=== PATIENT | male | born 1950 | race Caucasian/White ===

== ENCOUNTER 2021-10-18 12:40 | Emergency (ER) | payer OTHER ==
[~2021-10-18] VITALS: Ht 167.6 cm; Wt 71.2 kg
[2021-10-18 14:13] VITALS: BP 146/90
== END 2021-10-18 18:13 | disposition home or self-care (01) ==
LOC: ER 12:40
DX: S39.012A Strain of muscle, fascia and tendon of lower back, initial encounter (principal); S80.01XA Contusion of right knee, initial encounter; S50.11XA Contusion of right forearm, initial encounter; I96 Gangrene, not elsewhere classified; I10 Essential (primary) hypertension; Z88.0 Allergy status to penicillin; Z88.7 Allergy status to serum and vaccine; V43.52XA Car driver injured in collision with other type car in traffic accident, initial encounter; Y93.89 Activity, other specified; Y92.410 Unspecified street and highway as the place of occurrence of the external cause; Y99.8 Other external cause status
CPT/HCPCS: 72100; 73110; 73562

== ENCOUNTER 2022-09-18 07:00 | Day surgery (SDC) | payer OTHER ==
[~2022-09-18] VITALS: Ht 167.6 cm; Wt 71.2 kg
[~2022-09-18 07:00] MED LIST: ASPI-543 PO; CLOP75TA70 PO; HOME1SUB13 SL; HYDR-4072 PO; LISI-285 PO; METO-289 PO; MORI500C PO; POTA-180 PO; ROSU1TAB14 PO; SPECCAP4 OR; ZINC50TA7 PO
[2022-09-18] MEDS ORDERED: MIDAZOLAM HCL 2MG/2ML 2ml VIAL (1mg/ml) IV ONE (08:00)
[2022-09-18] MEDS ORDERED: fentaNYL CITRATE 100 MCG/2 ML VL IV ONE (08:00)
[2022-09-18] MEDS ORDERED: LIDOCAINE VISCOUS 2% 15ML UD PO ONE (08:00)
[2022-09-18 08:31] VITALS: BP 120/65
[2022-09-18 08:46] VITALS: BP 95/45
[2022-09-18 09:01] VITALS: BP 94/41
[2022-09-18 09:16] VITALS: BP 107/41
== END 2022-09-18 09:21 | disposition home or self-care (01) ==
LOC: CATH 07:00
PROVIDERS: ATTEND Internal Medicine
DX: I08.3 Combined rheumatic disorders of mitral, aortic and tricuspid valves (principal)
CPT/HCPCS: 93312; J2250; J3010; J7040; 99152

== ENCOUNTER 2025-01-24 11:31 | Inpatient (IN) | payer OTHER ==
[~2025-01-24] VITALS: Ht 167.6 cm; Wt 71.0 kg
[~2025-01-24 11:31] MED LIST changes: -ROSU1TAB14 PO; +ROSU20TA56 PO
--- NOTE | 2025-01-24 11:39 | ECG ---
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
--- NOTE | 2025-01-24 11:41 | ED.PDOC ---
HPI Comments 74-year-old male presents with a chief complaint of chest pain x 3 days. Patient mentions that his pain is localized to his sternal region, nonradiating, nonexertional, describes as intermittent lasting 10 seconds each time. Patient denies any other symptoms at this time. Patient is a poor historian. PMHx: HTN, HLD, CAD PSHx: PTCA HPI: Poor Historian. REVIEW OF SYSTEMS: CONSTITUTIONAL: Denies acute: fever, diaphoresis, chills, generalized weakness. HEAD: Denies acute: headache, photophobia Eyes: Denies acute: Double vision, vision loss, eye pain, eye discharge. EARS: Denies acute: tinnitus, hearing loss, ear discharge, ear pain, THROAT: Denies acute: sore throat, swelling, difficulty swallowing , pain with swallowing, change in voice. NECK: Denies acute: neck pain, neck swelling, stiff neck. HEART: Denies acute : palpitations, LUNGS: Denies acute: SOB, wheezing, cough, hemoptysis ABDOMEN: Denies acute: abdominal pain, Nausea, Vomiting, diarrhea, melena , hematemesis, hematochezia SKIN: Denies acute: rash, redness, lesions, itchiness. EXTREMITIES: Denies acute: calf pain, numbness, tingling, weakness, denies pain in extremity. Denies acute: Low back pain. Neuro: Denies acute: focal neurological deficit, motor or sensory focal neurological deficit, tremors, seizure like activity, confusion, dizziness, change in mental status, loss of bowel or bladder function, cauda equina like symptoms. : Denies acute: dysuria, hematuria, flank pain, increase in urinary frequency. PSYCH: Denies acute: hallucination, suicidal ideation, homicidal ideation. PHYSICAL EXAM: General: ----mild----acute distress, awake and alert. Head: normocephalic, atraumatic. Neck: supple, trachea is midline, no swelling. Throat: Normal phonation. Eyes:, no erythema, no purulent discharge, no proptosis, no icterus. Heart: regular rate, regular rhythm, no significant murmur appreciated. Lungs: no apparent respiratory distress, Able to speak in full sentences. No wheezing, no rhonchi, no crackles. No stridors Clear to auscultation bilaterally. Abdomen: non tender to palpation, non distended, soft, no guarding, no rebound, + bowel sounds. Neuro: Awake, Alert, oriented to name, self, situation, follows commands GCS=15. Speech is normal. Skin: no petechia, no purpura, no cyanosis, non-pale, not jaundice. Lower extremities: --no - Pitting edema no deformity, no focal swelling, no calf TTP. Makes eye contact. moves all four extremities. Face: no apparent facial droop. Ambulating in the ED independently. ED COURSE: DISCLAIMER: This medical document was created using an electronic medical record system with voice recognition software and computerized dictation system. Although this document has been carefully reviewed, there might still be some phonetic and typographical errors. Occasional wrong-word or "sound-alike" substitutions may have occurred due to the inherent limitations of voice recognition software. These areas are purely typographical due to imperfections of the software programs and do not reflect any compromise in the patient's medical care. Please read the chart carefully and recognize, using context, where these substitutions have occurred. Chief Complaint: Chest Pain Time Seen by MD: 11:34 Primary Care Provider: MAURA Reviewed Notes: Medications, Allergies Allergies: Coded Allergies: Penicillins (Verified Allergy, Severe, 10/18/21) Tetanus Toxoids (Verified Allergy, Severe, 10/18/21) Magnesium (Verified Allergy, Intermediate, 09/15/22) Home Meds Reported Medications Specialty Vitamins Products (Collagen Ultra) Ultra Cap, 1 OR DAILY for supplement, CAP 09/15/22 Moringa Oleifera (Moringa) 500 Mg Cap, 1000 MG PO DAILY for supplement, CAP 09/15/22 Homeopathic Products (Liver Support) 1 Sub Sub, 1 SUB SL DAILY for supplement, INJ 09/15/22 Zinc Gluconate (Zinc) 50 Mg Tab, 50 MG PO DAILY for supplement, TAB 09/15/22 Hydrocodone-Acetaminophen (Hydrocodone/Acetaminophen 10-325 mg) 1 Tab Tab, 1 TAB PO Q6HPRN for pain management, TAB 09/15/22 Aspirin (Aspir-Low) 81 Mg Tab, 81 MG PO DAILY for heart 09/15/22 Lisinopril & Hydrochlorothiazi (Lisinopril/Hydrochlorothi) 1 Tab Tab, 1 TAB PO DAILY for htn 09/15/22 Rosuvastatin Calcium (Rosuvastatin Calcium) 20 Mg Tab, 20 MG PO DAILY for cholesterol, TAB 09/15/22 Clopidogrel Bisulfate (CLOPIDOGREL) 75 Mg Tab, 75 MG PO DAILY for blood thinner 09/15/22 Metoprolol Succinate (Metoprolol Succinate Er) 50 Mg Tab, 50 MG PO DAILY for htn/heart 09/15/22 Potassium Chloride (Potassium Chloride ER) 20 Meq Tab, 20 MEQ PO DAILY for supplement, TAB 09/15/22 Information Source: Patient Mode of Arrival: Ambulatory Severity: Moderate Past Medical History PAST MEDICAL HISTORY: High Lipids, HTN Surgical History: PTCA Family History Family History: Unknown Social History Smoker: Non-Smoker Alcohol: Denies ETOH Use Drugs: Denies Drug Use Lives In: Home Was a procedure done? Was a procedure done?: No CP Differential Dx Differential Diagnosis: N/A Differential Diagnosis: Other (Ddx include but not limitied to gastritis, musculoskeletal pain, radiculopathy, atypical chest pain, dissection, aneurysm, ACS, unstable angina, hiatal hernia, GERD, anxiety, costochondritis, PE, pneumothroax, neoplasm, cardiac ischemia, drug abuse, anemia.) X-Ray, Labs, Meds, VS Vital Signs Date Time Temp Pulse Resp B/P (MAP) Pulse Ox O2 Delivery O2 Flow Rate FiO2 01/24/25 13:13 131/67 01/24/25 13:11 63 16 97 Room Air* 0 21 01/24/25 13:09 98.0 62 17 131/67 (88) 96 98.0 01/24/25 12:31 66 01/24/25 11:37 73 01/24/25 11:32 97.4 71 18 162/76 96 97.4 Lab Test 01/24/25 12:57 01/24/25 12:35 01/24/25 11:42 Range/Units Troponin I High Sensitivity 5 6 </=54 ng/L Urine Color Light-yellow Yellow Urine Clarity Clear Clear Urine pH 6.5 5.0-9.0 Urine Specific [place] 1.007 1.001-1.035 Urine Protein Negative Negative Urine Ketones Negative Negative Urine Blood Negative Negative /uL Urine Nitrite Negative Negative Urine Bilirubin Negative Negative Urine Urobilinogen Normal Negative mg/dL Urine Leukocyte Esterase Negative Negative /uL Urine RBC 1 0 - 3 /hpf Urine Microscopic WBC < 1 0-3 /HPF Urine Squamous Epithelial Cells None seen <5 /hpf Urine Bacteria None seen None Seen /hpf Urine Glucose Normal Normal mg/dL White Blood Count 7.1 4.4-10.8 10^3/uL Red Blood Count 4.71 4.5-5.90 10^6/uL Hemoglobin 15.9 13.5-17.5 g/dL Hematocrit 45.9 41.0-53.0 % Mean Corpuscular Volume 97.5 80.0-100.0 fL Mean Corpuscular Hemoglobin 33.8 H 28.0-32.0 pg Mean Corpuscular Hemoglobin Concent 34.6 32.0-36.0 g/dL Red Cell Distribution Width 13.9 11.8-14.3 % Platelet Count 210 140-450 10^3/uL Mean Platelet Volume 8.3 6.9-10.8 fL Neutrophils (%) (Auto) 61.6 37.0-80.0 % Lymphocytes (%) (Auto) 24.7 10.0-50.0 % Monocytes (%) (Auto) 8.1 0.0-12.0 % Eosinophils (%) (Auto) 5.2 0.0-7.0 % Basophils (%) (Auto) 0.4 0.0-2.0 % Neutrophils # (Auto) 4.4 1.6-8.6 10 ^3/uL Lymphocytes # (Auto) 1.8 0.4-5.4 10 ^3/uL Monocytes # (Auto) 0.6 0-1.3 10 ^3/uL Eosinophils # (Auto) 0.4 0-0.8 10 ^3/uL Basophils # (Auto) 0 0-0.2 10 ^3/uL Nucleated Red Blood Cells 0.1 % Sodium Level 141 136-145 mmol/L Potassium Level 3.7 3.5-5.1 mmol/L Chloride Level 103 98-107 mmol/L Carbon Dioxide Level 29 20-31 mmol/L Anion Gap 9 5-15 Blood Urea Nitrogen 7 L 9-23 mg/dL Creatinine 0.80 0.700-1.30 mg/dL Glomerular Filtration Rate Calc 92 >90 mL/min BUN/Creatinine Ratio 8.8 L 10.0-20.0 Serum Glucose 111 H 74-106 mg/dL Calcium Level 10.7 H 8.7-10.4 mg/dL Total Bilirubin 0.7 0.2-1.0 mg/dL Aspartate Amino Transferase (AST) 26 13-40 U/L Alanine Aminotransferase (ALT) 25 7-40 U/L Alkaline Phosphatase 91 46-116 U/L B-Type Natriuretic Peptide 188.77 0-100 pg/mL Total Protein 7.1 5.7-8.2 g/dL Albumin 4.5 3.2-4.8 g/dL Current Medications Medications (Trade) Dose Ordered Sig/Isis Route Start Time Stop Time Status Last Admin Aspirin 325 mg ONCE ONCE PO 01/24/25 11:45 01/24/25 11:46 DC 01/24/25 13:13 Nitroglycerin (Ntrostat Sublingual) 0.4 mg ONCE ONCE SL 01/24/25 11:45 01/24/25 11:46 DC 01/24/25 13:13 PATIENT: QUINCY GARCIACT: [id number]: [id number] : 1950 LOC: ER ROOM / BED: / AGE / SEX: 74 / M ADM STATUS: REG ER SERVICE 1138 ORDERING PHYSICIAN: CALLUM FUNG DO PROCEDURE(s): CXRP - CHEST PORTABLE REASON: cp ORDER NUMBER(s): [id number], ACCESSION NUMBER(s): [id number] CLINICAL HISTORY: cp TECHNIQUE: Single view of the chest was obtained. COMPARISON: TRANSESOPH ECHOCARDIOGRAM on DOS: 09/18/22 FINDINGS: The heart size and pulmonary vasculature are normal. The lungs are clear. IMPRESSION: NO ACUTE CARDIOPULMONARY PROCESS. ATED BY: WILI RUTH MD DICTATED DATE/TIME: 01/24/251205 SIGNED BY: WILI RUTH MD SIGNED DATE/TIME: 01/24/251205 Time of 1ST Reevaluation: 12:04 Reevaluation 1ST: Unchanged Patient Education/Counseling: Diagnosis, Treatment Family Education/Counseling: Diagnosis, Treatment Comments MDM: patient presented with the above HPI.--chest pain----workup was initiated. patient was found with the above mentioned diagnosis. the following medications were ordered: please refer to order lists of meds and tests obtained by myself Dr. Fung. Patient ED course and VS have been stabilized. Patient has been reassessed in the ED and remained in a stable condition. Pertinent incidental findings were discussed with the patient and/or family. Patient/family voices understanding and is agreeable with plan. Patient has been observed in the ED adequate length of time to insure imp rovement/stability. Escalation of care considered: Consideration of escalation to observation or admission Patient was ADMITTED to the medicine team for further evaluation and treatment of their presentation. All the reports of any imaging studies that were ordered by myself were reviewed by myself. Departure 1 Departure Time of Disposition: 12:29 Impression: Primary Impression: Chest pain Additional Impression: Acute myocardial infarction Disposition: ADMITTED INPATIENT Admit to: Tele Condition: Guarded Discharged With: Self Critical Care Note Critical Care Time?: No Heart Score Heart Score: Heart Score Response (Comments) Value History Moderate Suspicious 1 EKG Normal 0 Age >65 2 Risk Factors >3 or Hx ASHD 2 Troponin Normal limit 0 Total 5 I personally scribed for CALLUM FUNG DO ([email or web address]) on 01/24/25 at 11:41. Electronically submitted by Kojo Mccauley ([email or web address]). I personally scribed for CALLUM FUNG DO ([email or web address]) on 01/24/25 at 13:01. Electronically submitted by Kojo Mccauley ([email or web address]). CALLUM FUNG DO Jan 24, 2025 11:41
--- NOTE | 2025-01-24 12:08 | DVH ---
CLINICAL HISTORY: cp TECHNIQUE: Single view of the chest was obtained. COMPARISON: TRANSESOPH ECHOCARDIOGRAM on DOS: 09/18/22 FINDINGS: The heart size and pulmonary vasculature are normal. The lungs are clear. IMPRESSION: NO ACUTE CARDIOPULMONARY PROCESS.
[2025-01-24 12:15] LABS: Alanine Aminotransferase 25 U/L (7-40); Albumin 4.5 g/dL (3.2-4.8); Alkaline Phosphatase 91 U/L (46-116); Anion Gap 9 (5-15); BUN/Creatinine Ratio 8.8 (10.0-20.0); Bilirubin, Total 0.7 mg/dL (0.2-1.0); Carbon Dioxide 29 mmol/L (20-31); Chloride 103 mmol/L (98-107); Potassium 3.7 mmol/L (3.5-5.1); Sodium 141 mmol/L (136-145); Total Protein 7.1 g/dL (5.7-8.2)
[2025-01-24 12:16] LABS: Hematocrit 45.9 % (41.0-53.0); Hemoglobin 15.9 g/dL (13.5-17.5); Mean Corpuscular Hemoglobin 33.8 pg (28.0-32.0); Mean Corpuscular Volume 97.5 fL (80.0-100.0); Nucleated Red Blood Cells % 0.1 %
[2025-01-24 12:17] LABS: Blood Urea Nitrogen 7 mg/dL (9-23); Calcium 10.7 mg/dL (8.7-10.4); Glucose 111 mg/dL (74-106)
[2025-01-24 13:04] LABS: Urine Protein, UAD Negative (Negative)
[2025-01-24 13:11] VITALS: PULSE 63; RESP 16; O2SAT 97
[2025-01-24] MEDS: NITROGLYCERIN 0.4 MG SL TAB SL ONE (13:13)
[2025-01-24] MEDS ORDERED: ONDANSETRON HCL 4 MG/2 ML VIAL IV PRN (14:15)
[2025-01-24] MEDS ORDERED: HYDROcodone-ACET 5/325MG TAB PO PRN (14:15)
[2025-01-24] MEDS ORDERED: MORPHINE SULFATE INJ 2 MG/ml SYRG IV PRN ×2 (14:15)
[2025-01-24] MEDS ORDERED: ACETAMINOPHEN 325 MG TAB PO PRN (14:15)
[2025-01-24] MEDS ORDERED: NITROGLYCERIN 0.4 MG SL TAB SL PRN (14:15)
--- NOTE | 2025-01-24 14:24 | DVHHP2 ---
History of Present Illness Reason for Visit: Intermittent chest pain on and off for last three days History of Present Illness 74-year-old male with a known history of coronary artery disease status post PCI with a one stent, hypertension, dyslipidemia who initially presented to the hospital with a intermittent chest pain on and off for last three days. Patient has stated that the pain is kind of pressure in the substernal area without any radiation associated with shortness of breaths. Patient's denies any previous episode of similar kind. Patient does have known history of GERD. Denies any fevers chills flu-like symptoms or any recent sick contacts. Cardiovascular: CAD, HTN, hyperipidemia GI: GERD Past Surgical History: Other (Left shoulder surgery. C-spine neck surgery.), Total knee replacement Family History: None Smoke: No ALCOHOL: none Drugs: None Review of Systems Review of Systems Twelve review of system are negative besides mentioned above. Allergies: Coded Allergies: Penicillins (Verified Allergy, Severe, 10/18/21) Tetanus Toxoids (Verified Allergy, Severe, 10/18/21) Magnesium (Verified Allergy, Intermediate, 09/15/22) Exam Vital Signs Vital Signs Date Time Temp Pulse Resp B/P (MAP) Pulse Ox O2 Delivery O2 Flow Rate FiO2 01/24/25 13:13 131/67 01/24/25 13:11 63 16 97 Room Air* 0 21 01/24/25 13:09 98.0 98.0 Exam HEENT pupils are reactive Neck is supple CV is S1-S2 regular rate and rhythm Respiratory diminished breath sounds bases GI positive bowel sounds Extremity no edema DIRECTOR OF BILLING no motor deficit Labs/Xrays Labs Test 01/24/25 12:57 01/24/25 12:35 01/24/25 11:42 Range/Units Troponin I High Sensitivity 5 </=54 ng/L Urine Color Light-yellow Yellow Urine Clarity Clear Clear Urine pH 6.5 5.0-9.0 Urine Specific [place] 1.007 1.001-1.035 Urine Protein Negative Negative Urine Ketones Negative Negative Urine Blood Negative Negative /uL Urine Nitrite Negative Negative Urine Bilirubin Negative Negative Urine Urobilinogen Normal Negative mg/dL Urine Leukocyte Esterase Negative Negative /uL Urine RBC 1 0 - 3 /hpf Urine Microscopic WBC < 1 0-3 /HPF Urine Squamous Epithelial Cells None seen <5 /hpf Urine Bacteria None seen None Seen /hpf Urine Glucose Normal Normal mg/dL White Blood Count 7.1 4.4-10.8 10^3/uL Red Blood Count 4.71 4.5-5.90 10^6/uL Hemoglobin 15.9 13.5-17.5 g/dL Hematocrit 45.9 41.0-53.0 % Mean Corpuscular Volume 97.5 80.0-100.0 fL Mean Corpuscular Hemoglobin 33.8 H 28.0-32.0 pg Mean Corpuscular Hemoglobin Concent 34.6 32.0-36.0 g/dL Red Cell Distribution Width 13.9 11.8-14.3 % Platelet Count 210 140-450 10^3/uL Mean Platelet Volume 8.3 6.9-10.8 fL Neutrophils (%) (Auto) 61.6 37.0-80.0 % Lymphocytes (%) (Auto) 24.7 10.0-50.0 % Monocytes (%) (Auto) 8.1 0.0-12.0 % Eosinophils (%) (Auto) 5.2 0.0-7.0 % Basophils (%) (Auto) 0.4 0.0-2.0 % Neutrophils # (Auto) 4.4 1.6-8.6 10 ^3/uL Lymphocytes # (Auto) 1.8 0.4-5.4 10 ^3/uL Monocytes # (Auto) 0.6 0-1.3 10 ^3/uL Eosinophils # (Auto) 0.4 0-0.8 10 ^3/uL Basophils # (Auto) 0 0-0.2 10 ^3/uL Nucleated Red Blood Cells 0.1 % Sodium Level 141 136-145 mmol/L Potassium Level 3.7 3.5-5.1 mmol/L Chloride Level 103 98-107 mmol/L Carbon Dioxide Level 29 20-31 mmol/L Anion Gap 9 5-15 Blood Urea Nitrogen 7 L 9-23 mg/dL Creatinine 0.80 0.700-1.30 mg/dL Glomerular Filtration Rate Calc 92 >90 mL/min BUN/Creatinine Ratio 8.8 L 10.0-20.0 Serum Glucose 111 H 74-106 mg/dL Calcium Level 10.7 H 8.7-10.4 mg/dL Total Bilirubin 0.7 0.2-1.0 mg/dL Aspartate Amino Transferase (AST) 26 13-40 U/L Alanine Aminotransferase (ALT) 25 7-40 U/L Alkaline Phosphatase 91 46-116 U/L B-Type Natriuretic Peptide 188.77 0-100 pg/mL Total Protein 7.1 5.7-8.2 g/dL Albumin 4.5 3.2-4.8 g/dL SEPSIS Sepsis Screen Date sepsis recognized/suspect: Jan 24, 2025 Time Sepsis recognized/suspect: 1134 Recent Procedure: No Respiratory Rate >20: No Heart Rate >90: No Temp<36 C (96.8 F) or >38.3 C: No SBP <90 or MAP <65 mmHG: No New Acute Mental Status Change: No Is the patient on CPAP, BIPAP,: No Physician Orders Troponin-I Hs (01/24/25 14:35) Electrocardigram (01/24/25 12:35) Electrocardigram (01/24/25 14:35) Bottom Precipitator Operator (01/24/25 ) Chest Portable (01/24/25 11:38) Admit (01/24/25 14:15) Code Status (01/24/25 14:15) 2 Gm Sodium Diet (01/24/25 Dinner) Hydrocodone-Acet 5/325mg Tab ([place] 5/32 (01/24/25 14:15) Ondansetron Hcl (Zofran) (01/24/25 14:15) Echo 2d Mode Cardiac Dop (01/24/25 14:15) Condition: Fair (01/24/25 14:15) Acetaminophen Tablet (Tylenol Tablet) (01/24/25 14:15) Morphine Sulfate Injection (01/24/25 14:15) Nitroglycerin Sublingual (Ntrostat Subli (01/24/25 14:15) Morphine Sulfate Injection (01/24/25 14:15) Stat Ekg For Chest Pain (01/24/25 14:15) Notify Md Of Changes From Base (01/24/25 14:15) Cut In Station Operator For 24 Hours (01/24/25 14:15) Emergency Dysrhythmia Protocol (01/24/25 14:15) Rhythm Strips Once Every Shift (01/24/25 14:15) Oxygen By Nasal Cannula (01/24/25 14:15) * Cardiology Consult (01/24/25 14:15) Aspirin Enteric Coated Tablet (Ecotrin E (01/25/25 10:00) Clopidogrel Bisulfate (Plavix) (01/25/25 10:00) Metoprolol Xl Succinate (Toprol Xl) (01/25/25 10:00) (Nf) Lisinopril & Hydrochlorothiazi (Lis (01/25/25 10:00) (Nf) Rosuvastatin Calcium (01/25/25 10:00) Vital Signs Date Time Temp Pulse Resp B/P (MAP) Pulse Ox O2 Delivery O2 Flow Rate FiO2 01/24/25 13:13 131/67 01/24/25 13:11 63 16 97 Room Air* 0 21 01/24/25 13:09 98.0 62 17 131/67 (88) 96 98.0 01/24/25 12:31 66 01/24/25 11:37 73 01/24/25 11:32 97.4 71 18 162/76 96 97.4 Laboratory Tests Test 01/24/25 11:42 White Blood Count 7.1 10^3/uL (4.4-10.8) Medications Medications Dose Ordered Sig/Isis Route Start Time Stop Time Status Last Admin Dose Admin Aspirin 325 mg ONCE ONCE PO 01/24/25 11:45 01/24/25 11:46 DC 01/24/25 13:13 325 MG Nitroglycerin 0.4 mg ONCE ONCE SL 01/24/25 11:45 01/24/25 11:46 DC 01/24/25 13:13 0.4 MG Assessment/Plan Assessment/Plan 74-year-old male with a known history of CAD status post PCI, hypertension, dyslipidemia, GERD, who initially presented to the hospital with intermittent chest pain on and off for last three days found to have 1. Chest pain suspect unstable angina 2. Coronary artery disease status post PCI 3. Hypertension 4. Dyslipidemia 5. GERD -admitted to telemetry, 2D echo, cardiology consultation, resume home medications. Plan discussed with: Patient, Daughter My Orders Orders - MARC REY MD Procedure Category Date Status Time Admit ADMIT 01/24/25 Transmitted 14:15 Code Status CODE 01/24/25 Transmitted 14:15 2 Gm Sodium Diet DIET 01/24/25 Transmitted Dinner Hydrocodone-Acet PHA 01/24/25 Logged 5/325mg Tab ([place] 14:15 Ondansetron Hcl PHA 01/24/25 Logged (Zofran) 14:15 Echo 2d Mode Cardiac US 01/24/25 Logged DOP 14:15 Condition: Fair JASMIN 01/24/25 Transmitted 14:15 Acetaminophen Tablet PHA 01/24/25 Transmitted (Tylenol Tablet) 14:15 Morphine Sulfate PHA 01/24/25 Transmitted Injection 14:15 Nitroglycerin PHA 01/24/25 Transmitted Sublingual (Ntrostat 14:15 Morphine Sulfate PHA 01/24/25 Transmitted Injection 14:15 Stat Ekg For Chest JASMIN 01/24/25 Transmitted Pain 14:15 Notify Md Of Changes JASMIN 01/24/25 Transmitted From Base 14:15 Cut In Station Operator For JASMIN 01/24/25 Transmitted 24 Hours 14:15 Emergency Dysrhythmia JASMIN 01/24/25 Transmitted Protocol 14:15 Rhythm Strips Once JASMIN 01/24/25 Transmitted Every Shift 14:15 Oxygen By Nasal RT 01/24/25 Transmitted Cannula 14:15 * Cardiology Consult CONS 01/24/25 Transmitted 14:15 Aspirin Enteric PHA 01/25/25 Transmitted Coated Tablet 10:00 Clopidogrel Bisulfate PHA 01/25/25 Transmitted (Plavix) 10:00 Metoprolol Xl PHA 01/25/25 Transmitted Succinate (Toprol Xl) 10:00 (Nf) Lisinopril & PHA 01/25/25 Transmitted Hydrochlorothiazi (Lis 10:00 (Nf) Rosuvastatin PHA 01/25/25 Transmitted Calcium 10:00 Date of Service: Jan 24, 2025 Billing Provider: MARC RYE MD Common Visit Codes: NOT BILLABLE MARC REY MD Jan 24, 2025 14:24
[2025-01-24 17:20] VITALS: BP 112/58; PULSE 57; RESP 18; TEMP 97.2; O2SAT 95
--- NOTE | 2025-01-24 18:59 | ECG ---
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
[2025-01-24 20:00] VITALS: BP 97/44; PULSE 61; RESP 18; O2SAT 95
[2025-01-24] MEDS: ATORVASTATIN 20 MG TAB PO SCH (21:44)
[2025-01-24 23:00] VITALS: BP 133/53; PULSE 60; RESP 17; TEMP 98.4; O2SAT 99
[2025-01-25] VITALS (7 sets, daily range): BP systolic 108–148; BP diastolic 40–78; PULSE 54–61; RESP 17–20; TEMP 96.5–97.9; O2SAT 94–98
[2025-01-25] MEDS: ASPirin-EC 81 mg tab PO SCH (09:54)
[2025-01-25] MEDS: CLOPIDOGREL BISULFATE 75 MG TAB PO SCH (09:54)
[2025-01-25] MEDS: METOPROLOL SUCCINATE XL 50 MG TAB PO SCH (09:55)
[2025-01-25] MEDS: LISINOPRIL 20 MG TAB PO SCH (09:55)
[2025-01-25] MEDS: hydroCHLOROthiazide 25 MG TAB PO SCH (09:55)
--- NOTE | 2025-01-25 11:41 | DVHINCON2 ---
Date Seen: Jan 25, 2025 Referring Physician Nara Reason for Consultation Chest Pain History of Present Illness 74-year-old male with PMH for CAD s/p PCI with stent x1, HTN, HLD presents to the hospital with intermittent chest pain. Chest pain described as dull/burning, intermittent, retrosternal, radiating up to throat area, feels more like indigestion at times. No change with exertion. Troponins negative x3. CXR unremarkable. Past Medical History CAD, HTN, HLD, GERD Past Surgical History Coronary PCI Family History: FH: heart disease G8 MOTHER G8 FATHER G8 BROTHER Kidney stones G8 BROTHER Social History Denies alcohol, tobacco, or illicit drug use. Allergies: Coded Allergies: Penicillins (Verified Allergy, Severe, 10/18/21) Tetanus Toxoids (Verified Allergy, Severe, 10/18/21) Magnesium (Verified Allergy, Intermediate, 09/15/22) Home Meds Reported Medications Specialty Vitamins Products (Collagen Ultra) Ultra Cap, 1 OR DAILY for supplement, CAP 09/15/22 Moringa Oleifera (Moringa) 500 Mg Cap, 1000 MG PO DAILY for supplement, CAP 09/15/22 Homeopathic Products (Liver Support) 1 Sub Sub, 1 SUB SL DAILY for supplement, INJ 09/15/22 Zinc Gluconate (Zinc) 50 Mg Tab, 50 MG PO DAILY for supplement, TAB 09/15/22 Hydrocodone-Acetaminophen (Hydrocodone/Acetaminophen 10-325 mg) 1 Tab Tab, 1 TAB PO Q6HPRN for pain management, TAB 09/15/22 Aspirin (Aspir-Low) 81 Mg Tab, 81 MG PO DAILY for heart 09/15/22 Lisinopril & Hydrochlorothiazi (Lisinopril/Hydrochlorothi) 1 Tab Tab, 1 TAB PO DAILY for htn 09/15/22 Rosuvastatin Calcium (Rosuvastatin Calcium) 20 Mg Tab, 20 MG PO DAILY for cholesterol, TAB 09/15/22 Clopidogrel Bisulfate (CLOPIDOGREL) 75 Mg Tab, 75 MG PO DAILY for blood thinner 09/15/22 Metoprolol Succinate (Metoprolol Succinate Er) 50 Mg Tab, 50 MG PO DAILY for htn/heart 09/15/22 Potassium Chloride (Potassium Chloride ER) 20 Meq Tab, 20 MEQ PO DAILY for supplement, TAB 09/15/22 Current Medications Current Medications Medications (Trade) Dose Ordered Sig/Isis Route PRN Reason Start Time Stop Time Status Last Admin Acetaminophen/ Hydrocodone Bitart ([place] 5/325MG Tab) 1 tab Q4HP PRN PO MODERATE PAIN (4-6 PAIN SCALE) 01/24/25 14:15 Ondansetron HCl (Zofran) 4 mg Q4HP PRN IV NAUSEA / VOMITING 01/24/25 14:15 Acetaminophen (Tylenol Tablet) 650 mg Q6HP PRN PO PAIN SCALE 1-3 OR TEMP>100.4 01/24/25 14:15 Morphine Sulfate 2 mg Q4HPRN PRN IV SEVERE PAIN (7-10 PAIN SCALE) 01/24/25 14:15 Nitroglycerin (Ntrostat Sublingual) 0.4 mg Q5MINP PRN SL FOR CHEST PAIN 01/24/25 14:15 Morphine Sulfate 2 mg Q30M PRN IV FOR CHEST PAIN 01/24/25 14:15 Aspirin (Ecotrin Enteric Coated Tablet) 81 mg DAILY PO 01/25/25 10:00 01/25/25 09:54 Clopidogrel Bisulfate (Plavix) 75 mg DAILY PO 01/25/25 10:00 01/25/25 09:54 Metoprolol Succinate (Toprol Xl) 50 mg DAILY PO 01/25/25 10:00 01/25/25 09:55 Lisinopril (Zestril Tablet) 20 mg DAILY PO 01/25/25 10:00 01/25/25 09:55 Atorvastatin Calcium (Lipitor) 40 mg HS PO 01/24/25 22:00 01/24/25 21:44 Hydrochlorothiazide (hydroCHLOROthiazide TABLET) 25 mg DAILY PO 01/25/25 10:00 01/25/25 09:55 Review of Systems Constitutional: No: Fever, Chills, Sweats, Weakness, Malaise, Other Eyes: No: Pain, Vision change, Conjunctivae inflammation, Eyelid inflammation, Other, Redness ENT: No: Ear pain, Ear discharge, Nose pain, Nose discharge, Nose congestion, Mouth pain, Mouth swelling, Throat pain, Throat swelling, Other Respiratory: No: Cough, Dry, Shortness of breath, SOB with exertion, Wheezing, Hemoptysis, Pleuritic Pain, Sputum, Wheezing, Other Cardiovascular: ; No: Chest Pain Palpitations, Orthopnea, Paroxysmal Noc. Dyspnea, Edema, Lt Headedness, Other Gastrointestinal: No: Nausea, Vomiting, Abdominal Pain, Diarrhea, Constipation, Melena, Hematochezia, Other Genitourinary: No Dysuria, No Frequency, No Incontinence, No Hematuria, No Retention, No Other Musculoskeletal: neck pain; No: other, shoulder pain, arm pain, back pain, hand pain, leg pain, foot pain Skin: No: Rash, Lesions, Jaundice, Bruising, Other Neurological: Other (Dizziness, headache.); No: Weakness, Numbness, Incoordination, Change in speech, Confusion, Seizures Vital Signs Vital Signs Date Time Temp Pulse Resp B/P (MAP) Pulse Ox O2 Delivery O2 Flow Rate FiO2 01/25/25 09:55 148/58 01/25/25 09:55 61 01/25/25 09:00 96.5 18 95 96.5 01/24/25 20:00 Room Air* 0 21 Physical Exam General appearance: Patient is well-developed, well-nourished, in no acute distress. HEENT: Exam shows: Normocephalic, atraumatic, PERRLA, EOMI Neck: Supple, no bruits Chest: Equal chest excursion bilaterally. Breath sounds normal-no rales or wheezes. Heart: Rhythm: Regular rate; no murmur or gallop Abdomen: Exam shows: Soft, nontender, nondistended Musculoskeletal: No clubbing, no cyanosis, no lower extremity edema Dermatology: Skin warm, moist. Neurological: Exam shows: Alert and oriented x4, normal speech Available prior records, labs, EKG, rhythm strips reviewed and interpreted Labs/Diagnostic Data Labs Test 01/24/25 14:49 01/24/25 12:35 01/24/25 11:42 Range/Units Troponin I High Sensitivity 5 </=54 ng/L Urine Color Light-yellow Yellow Urine Clarity Clear Clear Urine pH 6.5 5.0-9.0 Urine Specific [place] 1.007 1.001-1.035 Urine Protein Negative Negative Urine Ketones Negative Negative Urine Blood Negative Negative /uL Urine Nitrite Negative Negative Urine Bilirubin Negative Negative Urine Urobilinogen Normal Negative mg/dL Urine Leukocyte Esterase Negative Negative /uL Urine RBC 1 0 - 3 /hpf Urine Microscopic WBC < 1 0-3 /HPF Urine Squamous Epithelial Cells None seen <5 /hpf Urine Bacteria None seen None Seen /hpf Urine Glucose Normal Normal mg/dL White Blood Count 7.1 4.4-10.8 10^3/uL Red Blood Count 4.71 4.5-5.90 10^6/uL Hemoglobin 15.9 13.5-17.5 g/dL Hematocrit 45.9 41.0-53.0 % Mean Corpuscular Volume 97.5 80.0-100.0 fL Mean Corpuscular Hemoglobin 33.8 H 28.0-32.0 pg Mean Corpuscular Hemoglobin Concent 34.6 32.0-36.0 g/dL Red Cell Distribution Width 13.9 11.8-14.3 % Platelet Count 210 140-450 10^3/uL Mean Platelet Volume 8.3 6.9-10.8 fL Neutrophils (%) (Auto) 61.6 37.0-80.0 % Lymphocytes (%) (Auto) 24.7 10.0-50.0 % Monocytes (%) (Auto) 8.1 0.0-12.0 % Eosinophils (%) (Auto) 5.2 0.0-7.0 % Basophils (%) (Auto) 0.4 0.0-2.0 % Neutrophils # (Auto) 4.4 1.6-8.6 10 ^3/uL Lymphocytes # (Auto) 1.8 0.4-5.4 10 ^3/uL Monocytes # (Auto) 0.6 0-1.3 10 ^3/uL Eosinophils # (Auto) 0.4 0-0.8 10 ^3/uL Basophils # (Auto) 0 0-0.2 10 ^3/uL Nucleated Red Blood Cells 0.1 % Sodium Level 141 136-145 mmol/L Potassium Level 3.7 3.5-5.1 mmol/L Chloride Level 103 98-107 mmol/L Carbon Dioxide Level 29 20-31 mmol/L Anion Gap 9 5-15 Blood Urea Nitrogen 7 L 9-23 mg/dL Creatinine 0.80 0.700-1.30 mg/dL Glomerular Filtration Rate Calc 92 >90 mL/min BUN/Creatinine Ratio 8.8 L 10.0-20.0 Serum Glucose 111 H 74-106 mg/dL Calcium Level 10.7 H 8.7-10.4 mg/dL Total Bilirubin 0.7 0.2-1.0 mg/dL Aspartate Amino Transferase (AST) 26 13-40 U/L Alanine Aminotransferase (ALT) 25 7-40 U/L Alkaline Phosphatase 91 46-116 U/L B-Type Natriuretic Peptide 188.77 0-100 pg/mL Total Protein 7.1 5.7-8.2 g/dL Albumin 4.5 3.2-4.8 g/dL Assessment * Chest Pain - atypical. EKG negative for acute ST abnormalities. Follow up echo. Continue aspirin and statin and Plavix. * HTN - continue on current regimen. Stable. * HLD - statin * CAD reported previous stent - continue aspirin and statin and Plavix. Case Discussed with Dr Smith. Chest pain atypical. Follow up echo, if no significant abnormalities noted on echo, no further cardiac work-up indicated at this time. Patient endorses had recent stress test at his [facility] Dr. Edwards within last 5-6 months that was unremarkable. Continue outpatient follow up with Dr. Edwards. Thank you for allowing us to participate in this patient's care. Will sign off. Critical care, time spent: 40 minutes This medical document was created using an electronic medical record system with voice recognition software and computerized dictation system. Although this document has been carefully reviewed, there might still be some phonetic and typographical errors. Occasional wrong-word or ``sound-alike substitutions may have occurred due to the inherent limitations of voice recognition software. These areas are purely typographical due to imperfections of the software programs and do not reflect any compromise in the patient's medical care. Please read the chart carefully and recognize, using context, where these substitutions have occurred. Thank you for allowing me to participate in the management of this patient. The treatment plan was discussed with and agreed upon by patient/family including requesting consultants and ordering of imaging/procedures. Plan discussed with: Patient NYHA Physical activity limitations: NA Date of Service: Jan 25, 2025 Billing Provider: YAZMIN FUENTES Cardiology Common Codes: [id number] INP/OBS CARE (High), [id number] CARE 30-74 MIN YAZMIN FUENTES Jan 25, 2025 11:41
[2025-01-25] MEDS: PANTOPRAZOLE 40 MG/10 ML VIAL INJ IV ONE (17:03)
[2025-01-25] MEDS ORDERED: OMEP20TA PO (17:36)
--- NOTE | 2025-01-25 17:39 | DVHDS2 ---
Discharge Summary Date of Admission Jan 24, 2025 at 14:15 Date of Discharge: Jan 25, 2025 Labs/Diagnostic Data: Laboratory Results Test 01/24/25 14:49 01/24/25 12:35 01/24/25 11:42 Troponin I High Sensitivity 5 ng/L (</=54) Urine Color Light-yellow (Yellow) Urine Clarity Clear (Clear) Urine pH 6.5 (5.0-9.0) Urine Specific [place] 1.007 (1.001-1.035) Urine Protein Negative (Negative) Urine Ketones Negative (Negative) Urine Blood Negative /uL (Negative) Urine Nitrite Negative (Negative) Urine Bilirubin Negative (Negative) Urine Urobilinogen Normal mg/dL (Negative) Urine Leukocyte Esterase Negative /uL (Negative) Urine RBC 1 /hpf (0 - 3) Urine Microscopic WBC < 1 /HPF (0-3) Urine Squamous Epithelial Cells None seen /hpf (<5) Urine Bacteria None seen /hpf (None Seen) Urine Glucose Normal mg/dL (Normal) White Blood Count 7.1 10^3/uL (4.4-10.8) Red Blood Count 4.71 10^6/uL (4.5-5.90) Hemoglobin 15.9 g/dL (13.5-17.5) Hematocrit 45.9 % (41.0-53.0) Mean Corpuscular Volume 97.5 fL (80.0-100.0) Mean Corpuscular Hemoglobin 33.8 pg (28.0-32.0) Mean Corpuscular Hemoglobin Concent 34.6 g/dL (32.0-36.0) Red Cell Distribution Width 13.9 % (11.8-14.3) Platelet Count 210 10^3/uL (140-450) Mean Platelet Volume 8.3 fL (6.9-10.8) Neutrophils (%) (Auto) 61.6 % (37.0-80.0) Lymphocytes (%) (Auto) 24.7 % (10.0-50.0) Monocytes (%) (Auto) 8.1 % (0.0-12.0) Eosinophils (%) (Auto) 5.2 % (0.0-7.0) Basophils (%) (Auto) 0.4 % (0.0-2.0) Neutrophils # (Auto) 4.4 10 ^3/uL (1.6-8.6) Lymphocytes # (Auto) 1.8 10 ^3/uL (0.4-5.4) Monocytes # (Auto) 0.6 10 ^3/uL (0-1.3) Eosinophils # (Auto) 0.4 10 ^3/uL (0-0.8) Basophils # (Auto) 0 10 ^3/uL (0-0.2) Nucleated Red Blood Cells 0.1 % Sodium Level 141 mmol/L (136-145) Potassium Level 3.7 mmol/L (3.5-5.1) Chloride Level 103 mmol/L (98-107) Carbon Dioxide Level 29 mmol/L (20-31) Anion Gap 9 (5-15) Blood Urea Nitrogen 7 mg/dL (9-23) Creatinine 0.80 mg/dL (0.700-1.30) Glomerular Filtration Rate Calc 92 mL/min (>90) BUN/Creatinine Ratio 8.8 (10.0-20.0) Serum Glucose 111 mg/dL (74-106) Calcium Level 10.7 mg/dL (8.7-10.4) Total Bilirubin 0.7 mg/dL (0.2-1.0) Aspartate Amino Transferase (AST) 26 U/L (13-40) Alanine Aminotransferase (ALT) 25 U/L (7-40) Alkaline Phosphatase 91 U/L (46-116) B-Type Natriuretic Peptide 188.77 pg/mL (0-100) Total Protein 7.1 g/dL (5.7-8.2) Albumin 4.5 g/dL (3.2-4.8) Other Laboratory Tests 01/24/25 11:42 Brief Hx & Hospital Course: 74-year-old male with a known history of CAD status post PCI, hypertension, dyslipidemia, GERD, who initially presented to the hospital with intermittent chest pain on and off for last three days found to have chest pain ruled out acute MA by negative cardiac markers and negative EKG. Patient was seen by Cardiology and currently stable to be discharged. Patient does have known history of GERD, omeprazole will be prescribed. Patient is being discharged under stable condition with a close follow up as an outpatient with the PCP and Cardiology. Condition at Discharge: Stable Final Diagnosis/Problems List 74-year-old male with a known history of CAD status post PCI, hypertension, dyslipidemia, GERD, who initially presented to the hospital with intermittent chest pain on and off for last three days found to have 1. Chest pain ruled out acute MA 2. Coronary artery disease status post PCI 3. Hypertension 4. Dyslipidemia 5. GERD Discharge Disposition: Home SNF Discharge Will this Physician continue t: No Discharge Instruct/Medications Diet: Cardiac 2g Na,low cholest Activity: No Restrictions, As Tolerated Follow Up/Referral: Follow up with the PCP in 1-2 weeks Follow up with the Cardiology for outpatient stress test if needed. Medications: Resume home medications, new prescription as prescribed. New Medications: Omeprazole (Gnp Omeprazole) 20 Mg Tab 1 TAB PO DAILY, #60 TAB 1 Refill Continued Medications: Aspirin (Aspir-Low) 81 Mg Tab 81 MG PO DAILY for heart Clopidogrel Bisulfate (Clopidogrel) 75 Mg Tab 75 MG PO DAILY for blood thinner Homeopathic Products (Liver Support) 1 Sub Sub 1 SUB SL DAILY for supplement, INJ Hydrocodone-Acetaminophen (Hydrocodone/Acetaminophen 10-325 mg) 1 Tab Tab 1 TAB PO Q6HPRN for pain management, TAB Lisinopril & Hydrochlorothiazi (Lisinopril/Hydrochlorothi) 1 Tab Tab 1 TAB PO DAILY for htn Metoprolol Succinate (Metoprolol Succinate Er) 50 Mg Tab 50 MG PO DAILY for htn/heart Moringa Oleifera (M[place]a) 500 Mg Cap 1000 MG PO DAILY for supplement, CAP Potassium Chloride (Potassium Chloride ER) 20 Meq Tab 20 MEQ PO DAILY for supplement, TAB Rosuvastatin Calcium (Rosuvastatin Calcium) 20 Mg Tab 20 MG PO DAILY for cholesterol, TAB Specialty Vitamins Products (Collagen Ultra) Ultra Cap 1 OR DAILY for supplement, CAP Zinc Gluconate (Zinc) 50 Mg Tab 50 MG PO DAILY for supplement, TAB Scheduled Aspirin (Aspir-Low), 81 MG PO DAILY, (Reported) Clopidogrel Bisulfate (Clopidogrel), 75 MG PO DAILY, (Reported) Homeopathic Products (Liver Support), 1 SUB SL DAILY, (Reported) Hydrocodone-Acetaminophen (Hydrocodone/Acetaminophen 10-325 mg), 1 TAB PO Q6HPRN, (Reported) Lisinopril & Hydrochlorothiazi (Lisinopril/Hydrochlorothi), 1 TAB PO DAILY, (Reported) Metoprolol Succinate (Metoprolol Succinate Er), 50 MG PO DAILY, (Reported) Moringa Oleifera (Moringa), 1,000 MG PO DAILY, (Reported) Omeprazole (Gnp Omeprazole), 1 TAB PO DAILY Potassium Chloride (Potassium Chloride ER), 20 MEQ PO DAILY, (Reported) Rosuvastatin Calcium (Rosuvastatin Calcium), 20 MG PO DAILY, (Reported) Specialty Vitamins Products (Collagen Ultra), 1 OR DAILY, (Reported) Zinc Gluconate (Zinc), 50 MG PO DAILY, (Reported) Discharge Statement: "Patient was advised to return to the ER or call 911 if any headaches, dizziness, shortness of breath, chest pain, abdominal pain, bleeding, fevers, or worsening of medical condition. Patient was counseled about treatment plan, medications, possible side effects, patientverbalized understanding. All questions were answered to the best of my ability. This discharge took greater then 30 minutes in planning, reviewing documentation, counseling the patient, and discussing with other team members." ASSESSMENT ASSESSMENT Assessment 74-year-old male with a known history of CAD status post PCI, hypertension, dyslipidemia, GERD, who initially presented to the hospital with intermittent chest pain on and off for last three days found to have 1. Chest pain ruled out acute MA 2. Coronary artery disease status post PCI 3. Hypertension 4. Dyslipidemia 5. GERD Date of Service: Jan 25, 2025 Billing Provider: MARC REY MD Common Visit Codes: NOT BILLABLE MARC REY MD Jan 25, 2025 17:39
[2025-01-26] MEDS ORDERED: PANTOPRAZOLE 40 MG/10 ML VIAL INJ IV SCH (10:00)
== END 2025-01-25 17:10 | disposition home or self-care (01) | DRG 206 ==
LOC: ER 11:31 → OVERFLOW 14:15 → TELE-WESTW 22:25
PROVIDERS: ADMIT Internal Medicine; ATTEND Internal Medicine
DX: M94.0 Chondrocostal junction syndrome [Tietze] (principal); K21.9 Gastro-esophageal reflux disease without esophagitis; I25.10 Atherosclerotic heart disease of native coronary artery without angina pectoris; I10 Essential (primary) hypertension; E78.5 Hyperlipidemia, unspecified; Z95.5 Presence of coronary angioplasty implant and graft; Z88.0 Allergy status to penicillin; Z88.7 Allergy status to serum and vaccine; Z82.49 Family history of ischemic heart disease and other diseases of the circulatory system; Z84.1 Family history of disorders of kidney and ureter
CPT/HCPCS: 36415; 71045; 80053; 81001; 83880; 84484; 85025; 93005; 93306; G0378; J2470

== ENCOUNTER 2025-02-28 00:13 | Emergency (ER) | payer OTHER ==
[~2025-02-28] VITALS: Ht 167.6 cm; Wt 74.4 kg
[~2025-02-28 00:13] MED LIST changes: +OMEP20TA PO
[2025-02-28 00:15] VITALS: TEMP 97
[2025-02-28] MEDS: HYDROcodone-ACET 10/325MG TAB PO ONE (01:24)
[2025-02-28 01:26] VITALS: PULSE 78; RESP 18; O2SAT 98
--- NOTE | 2025-02-28 01:39 | DVH ---
EXAM: CT HEAD WITHOUT CONTRAST INDICATION: Fall/facial and superior head trauma TECHNIQUE: CT of the head without intravenous contrast. Radiation Dose : 1. Head: CT Dose: CTDI volume is 53.95 mGy. Dose-length product is 955.45 mGy*cm The dose indicators for CT are the volume Computed Tomography (CT) Dose Index (CTDIvol) and the Dose Length Product (DLP), and are measured in units of mGy and mGy-cm, respectively. These indicators are not patient dose, but values generated from the CT scanner acquisition factors. The report includes radiation exposure data for exposures received during this examination. COMPARISON: None FINDINGS: There is no evidence of acute intracranial hemorrhage, extra-axial collection, mass effect, midline s hift, herniation or hydrocephalus. Increased prominence of the ventricles, sulci and cisterns is consistent with sequelae of atrophic co rtical volume loss.. The stallings-white differentiation is intact. Moderate diffuse confluent periventricular and subcortical white matter hypoattenuation is nonspecifi c but may be related to small vessel ischemic disease. Bilateral ethmoid mucosal sinus disease. The remaining visualized paranasal sinuses and mastoid air cells are clear. The surrounding soft tissues and osseous structures are unremarkable. IMPRESSION: 1. No acute intracranial abnormality. 2. Chronic sequelae of microangiopathy and atrophic cortical volume loss. Radiation optimization: All CT scans at this facility use at least one of these dose optimization saw hniques: automated exposure control mA and/or kV adjustment per patient size (includes targeted exam s where dose is matched to clinical indication) or iterative reconstruction.
--- NOTE | 2025-02-28 01:47 | DVH ---
HISTORY: Fall/facial trauma TECHNIQUE: Nonenhanced axial images through the facial bones with coronal and sagittal MPR. Radiation Dose Information: CT Dose: CTDI volume is 66 mGy. Dose-length product is 1293 mGy*cm Same-day CT head None FINDINGS: No evidence of acute fracture. Deviation of the nasal septum appears chronic. No evidence of soft tis daija swelling. The orbits are unremarkable. Chronic left maxillary complete opacification with asymmetrically small size. Mild ethmoid and right maxillary mucosal thickening. The mastoid cells are clear. Dentition is absent. Mild atherosclerosis. Degenerative change of the superior cervical spine without evidence of fracture. IMPRESSION: 1. No acute facial bone fracture. 2. Paranasal sinus disease. Radiation optimization: All CT scans at this facility use at least one of these dose optimization saw hniques: automated exposure control mA and/or kV adjustment per patient size (includes targeted exam s where dose is matched to clinical indication) or iterative reconstruction.
[2025-02-28] MEDS ORDERED: CEPH250C PO (02:40)
[2025-02-28] MEDS ORDERED: HYDR-4902 PO (02:40)
--- NOTE | 2025-02-28 02:42 | ED.PDOC ---
History of Present Illness HPI Comments This patient is a pleasant 74-year-old male who arrives the ED today for evaluation of facial trauma status post ground level fall approximately 1 hour prior to arrival. Patient states he was exiting a bar that he was with the family when he tripped over a parking curb and landed on his face. Patient arrives with a nearly controlled bloody nose and an abrasion to the bridge of his nose. Additional abrasion noted to the chin. No LOC. vital signs were stable. Patient appears to be moderately intoxicated. Chief Complaint: Fall Injury Time Seen by MD: 00:35 Primary Care Provider: MAURA Reviewed Notes: Nurses Notes Allergies: Coded Allergies: Penicillins (Verified Allergy, Severe, 10/18/21) Tetanus Toxoids (Verified Allergy, Severe, 10/18/21) Magnesium (Verified Allergy, Intermediate, 09/15/22) Home Meds Active Scripts Cephalexin (KEFLEX CAPSULE) 250 Mg Cp, 1 CAP PO QID for 7 Days, #28 CAP Prov:MELISA MCCURDY PAC 02/28/25 Omeprazole (Gnp Omeprazole) 20 Mg Tab, 1 TAB PO DAILY, #60 TAB 1 Refill Prov:MARC REY MD 01/25/25 Reported Medications Specialty Vitamins Products (Collagen Ultra) Ultra Cap, 1 OR DAILY for supplement, CAP 09/15/22 Moringa Oleifera (Moringa) 500 Mg Cap, 1000 MG PO DAILY for supplement, CAP 09/15/22 Homeopathic Products (Liver Support) 1 Sub Sub, 1 SUB SL DAILY for supplement, INJ 09/15/22 Zinc Gluconate (Zinc) 50 Mg Tab, 50 MG PO DAILY for supplement, TAB 09/15/22 Hydrocodone-Acetaminophen (Hydrocodone/Acetaminophen 10-325 mg) 1 Tab Tab, 1 TAB PO Q6HPRN for pain management, TAB 09/15/22 Aspirin (Aspir-Low) 81 Mg Tab, 81 MG PO DAILY for heart 09/15/22 Lisinopril & Hydrochlorothiazi (Lisinopril/Hydrochlorothi) 1 Tab Tab, 1 TAB PO DAILY for htn 09/15/22 Rosuvastatin Calcium (Rosuvastatin Calcium) 20 Mg Tab, 20 MG PO DAILY for cholesterol, TAB 09/15/22 Clopidogrel Bisulfate (CLOPIDOGREL) 75 Mg Tab, 75 MG PO DAILY for blood thinner 09/15/22 Metoprolol Succinate (Metoprolol Succinate Er) 50 Mg Tab, 50 MG PO DAILY for htn/heart 09/15/22 Potassium Chloride (Potassium Chloride ER) 20 Meq Tab, 20 MEQ PO DAILY for supplement, TAB 09/15/22 Information Source: Patient Mode of Arrival: Ambulatory Severity: Moderate Timing: Minutes Duration: Since onset Prehospital treatment: None Past Medical History PAST MEDICAL HISTORY: High Lipids, HTN Surgical History: PTCA Family History Family History: Unknown Social History Smoker: Non-Smoker Alcohol: Denies ETOH Use Drugs: Denies Drug Use Lives In: Home Constitutional: denies: chills, diaphoresis, fatigue, fever, malaise, sweats, weakness, others EENTM: reports: nose bleeding, others (Facial trauma); denies: blurred vision, double vision, ear bleeding, ear discharge, ear drainage, ear pain, ear ringing, eye pain, eye redness, hearing loss, mouth pain, mouth swelling, nasal discharge, nose congestion, nose pain, photophobia, tearing, throat pain, throat swelling, voice changes Respiratory: denies: cough, hemoptysis, orthopnea, SOB at rest, shortness of breath, SOB with excertion, stridor, wheezing, others Cardiovascular: denies: chest pain, dizzy spells, diaphoresis, Dyspnea on exertion, edema, irregular heart beat, left arm pain, lightheadedness, palpitations, PND, syncope, others Gastrointestinal: denies: abdomen distended, abdominal pain, blood streaked bowels, constipated, diarrhea, dysphagia, difficulty swallowing, hematemesis, melena, nausea, poor appetite, poor fluid intake, rectal bleeding, rectal pain, vomiting, others Genitourinary: denies: burning, dysuria, flank pain, frequency, hematuria, incontinence, penile discharge, penile sore, pain, testicle pain, testicle swelling, urgency, others Neurological: denies: dizziness, fainting, headache, left sided numbness, left sided weakness, numbness, paresthesia, pre-existing deficit, right sided numbness, right sided weakness, seizure, speech problems, tingling, tremors, weakness, others Musculoskeletal: denies: back pain, gout, joint pain, joint swelling, muscle pain, muscle stiffness, neck pain, others Integumetry: denies: bruises, change in color, change in hair/nails, dryness, laceration, lesions, lumps, rash, wounds, others Allergic/Immunocompromised: denies: Difficulty Healing, Frequent Infections, H nany, Itching, others Hematologic/Lymphatic: denies: anemia, blood clots, easy bleeding, easy bruising, swollen glands, others Endocrine: denies: excessive hunger, excessive sweating, excessive thirst, excessive urination, flushing, intolerance to cold, intolerance to heat, unexplained weight gain, unexplained weight loss, others Psychiatric: denies: anxiety, bipolar disorder, depression, hopeless, panic disorder, schizophrenia, sleepless, suicidal, others Physical Exam General Appearance: Moderate Distress ([id number] distress due to facial trauma pain concerns.), Normal HEENT: Head (Patient arrives with a abrasion noted to the bridge of the nose as well as a longer abrasion noted to the chin and upper lip. Patient has a nearly resolved epistaxis event. No eye involvement. No skull depressions or deformities.), Pharynx Normal, TMs Normal Neck: Full Range of Motion, Non-Tender, Normal, Normal Inspection Respiratory: Chest Non-Tender, Lungs Clear, No Accessory Muscle Use, No Respiratory Distress, Normal Breath Sounds Cardiovascular: No Edema, No JVD, No Murmur, No Gallop, Normal Peripheral Pulses, Regular Rate/Rhythm Breast Exam: Deferred Gastrointestinal: No Organomegaly, Non Tender, No Pulsatile Mass, Normal Bowel Sounds, Soft Genitalia: Deferred Pelvic: Deferred Rectal: Deferred Extremities: No calf tenderness, Normal capillary refill, No pedal edema Neurologic: Alert Cerebellar Function: Other, NOT DONE Reflexes: NOT DONE Skin: Wounds (See HEENT for description of facial wounds) Lymphatic: No Adenopathy Was a procedure done? Was a procedure done?: No Differential Dx Considerations may include: Hemorrhage, subdural hematoma, skull fracture, facial bone fracture, concussion, facial trauma X-Ray, Labs, Meds, VS Vital Signs Date Time Temp Pulse Resp B/P (MAP) Pulse Ox O2 Delivery O2 Flow Rate FiO2 02/28/25 01:26 76 18 147/67 (93) 98 02/28/25 01:26 78 18 98 Room Air* 0 21 02/28/25 00:15 97.0 68 18 161/75 98 97.0 Current Medications Medications (Trade) Dose Ordered Sig/Isis Route Start Time Stop Time Status Last Admin Acetaminophen/ Hydrocodone Bitart (Rosh[place] 10/325MG Tab) 1 tab ONCE ONCE PO 02/28/25 01:00 02/28/25 01:01 DC 02/28/25 01:24 X-Ray, Labs, Meds, VS Comment All studies performed the ED were evaluated by me personally. Imaging studies were unremarkable for any acute intracranial concern or facial fracture. Patient sustained some abrasions and facial contusion due to his event. Advised patient utilize pain medication as needed. Time of 1ST Reevaluation: 02:38 Reevaluation 1ST: Improved Consultation: PCP Patient Education/Counseling: Diagnosis, Treatment Family Education/Counseling: Diagnosis, Treatment SEPSIS Sepsis Screen Date sepsis recognized/suspect: Feb 28, 2025 Time Sepsis recognized/suspect: 001 Recent Procedure: No On Antibiotic Therapy: No Respiratory Rate >20: No Heart Rate >90: No Temp<36 C (96.8 F) or >38.3 C: No SBP <90 or MAP <65 mmHG: No New Acute Mental Status Change: No Is the patient on CPAP, BIPAP,: No Physician Orders Head Without Contrast (02/28/25 00:58) Maxillofacial Without (02/28/25 00:58) Vital Signs Date Time Temp Pulse Resp B/P (MAP) Pulse Ox O2 Delivery O2 Flow Rate FiO2 02/28/25 01:26 76 18 147/67 (93) 98 02/28/25 01:26 78 18 98 Room Air* 0 21 02/28/25 00:15 97.0 68 18 161/75 98 97.0 Medications Medications Dose Ordered Sig/Isis Route Start Time Stop Time Status Last Admin Dose Admin Acetaminophen/ Hydrocodone Bitart 1 tab ONCE ONCE PO 02/28/25 01:00 02/28/25 01:01 DC 02/28/25 01:24 Departure 1 Departure Time of Disposition: 02:38 Impression: Primary Impression: Facial trauma Additional Impression: Contusion Disposition: HOME / SELF CARE / HOMELESS Condition: Stable Additional Instructions: Advised patient utilize antibiotics as directed until completion as well as pain medication as needed. Ice therapy as tolerated. e-Prescriptions Cephalexin (KEFLEX CAPSULE) 250 Mg Cp 1 CAP PO QID for 7 Days, #28 CAP Prov: MELISA MCCURDY PAC 02/28/25 Discharged With: Self, Relative Critical Care Note Critical Care Time?: No Stability Stability form required: No Heart Score Heart Score: Heart Score Response (Comments) Value History N/A 0 EKG N/A 0 Age N/A 0 Risk Factors N/A 0 Troponin N/A 0 Total 0 MELISA MCCURDY PAC Feb 28, 2025 02:42
[2025-02-28 03:07] VITALS: BP 126/78; PULSE 76; RESP 18; O2SAT 98
== END 2025-02-28 03:08 | disposition home or self-care (01) ==
LOC: ER 00:13
DX: S00.83XA Contusion of other part of head, initial encounter (principal); S00.81XA Abrasion of other part of head, initial encounter; S00.31XA Abrasion of nose, initial encounter; I10 Essential (primary) hypertension; E78.5 Hyperlipidemia, unspecified; Z88.7 Allergy status to serum and vaccine; Z79.899 Other long term (current) drug therapy; Z79.02 Long term (current) use of antithrombotics/antiplatelets; Z79.01 Long term (current) use of anticoagulants; Z79.82 Long term (current) use of aspirin; Z88.0 Allergy status to penicillin; W01.198A Fall on same level from slipping, tripping and stumbling with subsequent striking against other object, initial encounter; Y93.89 Activity, other specified; Y92.89 Other specified places as the place of occurrence of the external cause; Y99.8 Other external cause status
CPT/HCPCS: 70450; 70486